=== PATIENT | female | born 1960 | race Caucasian/White ===

== ENCOUNTER 2016-09-03 03:01 | Inpatient (IN) | payer OTHER ==
[2016-09-03] MEDS ORDERED: FEVERALL 650 MG PR ONE (03:38)
[2016-09-03] MEDS ORDERED: Zosyn 3.375GM/100 Ml D5W 3.375 GM/100 ML IVPB IV STA (03:38)
[2016-09-03] MEDS ORDERED: Zosyn 3.375GM/100 Ml D5W 3.375 GM/100 ML IVPB IV ONE (03:43)
[2016-09-03] MEDS ORDERED: FEVERALL 650 MG ONE (03:43)
--- NOTE | 2016-09-03 03:53 | ERPHSYRPT ---
- History of Present Illness Time Seen by Provider: 09/03/16 03:30 Source: patient Exam Limitations: clinical condition Patient Subjective Stated Complaint: reports that she noticed skin infection on the buttocks x 1 week ago and went to see FMD, who Rx'd Keflex - states that she cant keep it down for vomiting and has had fever Triage Nursing Assessment: ambulatory to treatment area - waddling gait - moves all extremities with equal strength. alert/oriented - tearful affect. skin pwd - localized area of redness/swelling/tenderness on the right buttock. resps easy - non-labored Physician History: PATIENT COMPLAINS OF HAVING A RIGHT BUTTOCK INFECTION, INITIALLY ATTEMPTED TO RUPTURE SWOLLEN AREA BY SQUEEZING SWOLLEN AREA. HAS HAD FREQUENT EMESIS TODAY X 10, INCREASED IN PAINFUL SWELLING. PLACED ON ANTIBIOTIC KEFLEX FOR 1 WEEK. Method of Injury: unknown Quality: constant, throbbing Severity of Pain-Max: severe Severity of Pain-Current: severe Lower Extremities Pain: other: right (BUTTOCK) Associated Symptoms: none Allergies/Adverse Reactions: codeine [Codeine] Allergy (Mild, Verified 09/03/16 03:12) Home Medications: Atenolol 100 mg PO DAILY 05/24/13 [History] Furosemide [Lasix] 40 mg PO DAILY 05/24/13 [History] Modafinil [Provigil] 200 mg PO DAILY 05/24/13 [History] Hx Tetanus, Diphtheria Vaccination/Date Given: Yes Hx Influenza Vaccination/Date Given: Yes Hx Pneumococcal Vaccination/Date Given: No Immunizations Up to Date: Yes - Review of Systems Constitutional: Fever, Chills Eyes: No Symptoms Ears, Nose, & Throat: No Symptoms Respiratory: No Symptoms, No Cough, No Dyspnea Cardiac: Palpitations, No Chest Pain, No Edema, No Syncope Abdominal/Gastrointestinal: No Abdominal Pain, No Nausea, No Vomiting, No Diarrhea Genitourinary Symptoms: No Symptoms, No Dysuria Musculoskeletal: No Back Pain, No Neck Pain Skin: Cellulitis, Induration, No Rash Neurological: No Dizziness, No Focal Weakness, No Sensory Changes Psychological: No Symptoms Endocrine: No Symptoms All Other Systems: Reviewed and Negative - Past Medical History Pertinent Past Medical History: Yes Neurological History: Other Cardiac History: Hypertension Respiratory History: No Pertinent History Endocrine Medical History: Hypothyroidism Musculoskeletal History: Arthritis Other Medical History: Narcolepsy - Past Surgical History Past Surgical History: Yes Gastrointestinal: Cholecystectomy Female Surgical History: Hysterectomy Other Surgical History: SINUS SURGERY - Social History Smoking Status: Never smoker Exposure to second hand smoke: No Drug Use: none Patient Lives Alone: No - Female History Hx Last Menstrual Period: n/a Hx Now: No - Nursing Vital Signs Nursing Vital Signs: Initial Vital Signs Temperature 102.0 F Temperature Source Oral Pulse Rate 84 Respiratory Rate 16 Blood Pressure [Right Arm] 126/72 Pain Intensity 0 - Physical Exam General Appearance: alert Eyes, Ears, Nose, Throat Exam: moist mucous membranes Neck Exam: non-tender, supple Cardiovascular/Respiratory Exam: chest non-tender, normal breath sounds, regular rate/rhythm, no respiratory distress Gastrointestinal/Abdominal Exam: non-tender, guarding Back Exam: No vertebral tenderness Hips Exam: right: soft tissue tenderness (RIGHT BUTTOCK MEDIAL ASPECT 18CM X 12CM SWELLING, ERYTHEMA, MARKED TENDERNESS, WARMTH, SUPERFICIAL ABRASIONS WITH INDURATION), swelling, left: non-tender, normal inspection, normal range of motion DTR - Lower Extremities Exam: knee (R): 2+, knee (L): 2+, ankle (R): 2+, ankle ( L): 2+ Neuro/Tendon Exam: normal sensation, normal motor functions Mental Status Exam: alert, oriented x 3, cooperative Skin Exam: normal color, warm, dry SpO2 Interpretation: normal SpO2: 99 Oxygen Delivery: Room Air - Course EKG Interpreted by Me: RATE, Sinus Rhythm, NORMAL AXIS - Radiology Exams Chest X-ray Interpretation: Interpreted by me, Negative Ordered Tests: Active Orders 24 hr Category Date Time Status Admission/Status Order ROUTINE Care 09/03/16 05:50 Active Call Admit Doctor for Orders ON ADMISSION Care 09/03/16 05:51 Active Inspector Glass Or Mirror STAT Care 09/03/16 03:36 Active Clean Catch Urine Specimen STAT Care 09/03/16 03:32 Active Code Status Order ROUTINE Care 09/03/16 05:50 Active EKG-ER Only STAT Care 09/03/16 05:37 Active IV Care Q6H Care 09/03/16 05:50 Active IV Insertion STAT Care 09/03/16 04:58 Active IV Insertion-2nd Peripheral STAT Care 09/03/16 05:02 Active Oxygen-ED Only NASAL CANNULA 2 lpm Care 09/03/16 03:38 Active Pulse Oximetry (ED) STAT Care 09/03/16 03:36 Active Saline Lock STAT Care 09/03/16 03:36 Active Telemetry ROUTINE Care 09/03/16 05:50 Active Vital Signs Q4H Care 09/03/16 05:50 Active Low Sodium Diet 09/03/16 Breakfast Active CHEST 1 VIEW (PORTABLE) Stat Exams 09/03/16 03:38 Taken BLOOD CULTURE Stat Lab 09/03/16 04:00 Received CBC W DIFF Stat Lab 09/03/16 04:18 Completed CMP Stat Lab 09/03/16 04:18 Completed CULTURE,URINE Stat Lab 09/03/16 03:36 Ordered Lactic Acid Stat Lab 09/03/16 03:50 Results Lactic Acid Stat Lab 09/03/16 05:56 Ordered Manual Differential NC Stat Lab 09/03/16 04:18 Completed PROTIME WITH INR Stat Lab 09/03/16 04:39 Completed PTT Stat Lab 09/03/16 04:39 Completed TROPONIN Q3H Lab 09/03/16 04:45 Received TROPONIN Q3H Lab 09/03/16 08:45 Ordered TROPONIN Q3H Lab 09/03/16 11:45 Ordered TROPONIN Q3H Lab 09/03/16 14:45 Ordered TROPONIN Q3H Lab 09/03/16 17:45 Ordered UA Stat Lab 09/03/16 03:36 Ordered Oxygen NASAL CANNULA 2 lpm RT 09/03/16 05:50 Active Transfer Order Routine Transfer 09/03/16 05:47 Ordered Medication Summary Generic Name Dose Route Start Last Admin Trade Name Freq PRN Reason Stop Dose Admin Acetaminophen 650 mg 09/03/16 05:50 Tylenol 325 Mg PO 10/03/16 05:49 Q4H PRN PRN PAIN AND/OR FEVER Sodium Chloride 1,000 mls @ 999 mls/hr 09/03/16 03:45 09/03/16 05:35 Sodium Chloride 0.9% 1000 Ml IV 09/03/16 07:45 999 mls/hr .Q1H1M MAYURI Administration Vancomycin HCl 1 gm in 250 mls @ 167 mls/hr 09/03/16 05:41 09/03/16 05:47 Vancomycin 1gm/ Ns 250ml IV 09/03/16 07:10 167 mls/hr STAT ONE Administration Piperacillin Sod/Tazobactam Sod 3.375 gm in 100 mls @ 200 mls/hr 09/03/16 06: 00 Zosyn 3.375gm/100 Ml D5w IV 10/03/16 05:59 Q6HT MAYURI Potassium Chloride/Sodium Chloride 1,000 mls @ 50 mls/hr 09/03/16 06:00 Sodium Chloride 0.9% W/ 20 Meq Kcl/Liter IV 10/03/16 05:59 .Q20H MAYURI Sodium Chloride 1,000 mls @ 100 mls/hr 09/03/16 06:00 Sodium Chloride 0.9% 1000 Ml IV 10/03/16 05:59 .Q10H MAYURI Vancomycin HCl 1 gm in 250 mls @ 125 mls/hr 09/03/16 10:00 Vancomycin 1gm/ Ns 250ml IV 10/03/16 09:59 Q12HT MAYURI Morphine Sulfate 4 mg 09/03/16 05:50 Morphine Sulfate 4 Mg Inj IV 09/08/16 05:49 Q3H/PRN PRN PAIN Ondansetron HCl 4 mg 09/03/16 05:50 Zofran 4 Mg/2 Ml Vial IV 10/03/16 05:49 Q6H PRN PRN NAUSEA/VOMITING Discontinued Medications Generic Name Dose Route Start Last Admin Trade Name Freq PRN Reason Stop Dose Admin Acetaminophen 975 mg 09/03/16 03:38 09/03/16 04:25 Feverall 650 Mg MN 09/03/16 03:39 975 mg STAT ONE Administration Acetaminophen Confirm 09/03/16 03:43 Feverall 650 Mg Administered 09/03/16 03:44 Dose 1,300 mg .ROUTE .STK-MED ONE Piperacillin Sod/Tazobactam Sod 3.375 gm in 100 mls @ 200 mls/hr 09/03/16 03: 38 09/03/16 04:37 Zosyn 3.375gm/100 Ml D5w IV 09/03/16 04:07 200 mls/hr STAT STA Administration Piperacillin Sod/Tazobactam Sod Confirm 09/03/16 03:43 Zosyn 3.375gm/100 Ml D5w Administered 09/03/16 03:44 Dose 3.375 gm in 100 mls @ ud IV .STK-MED ONE Vancomycin HCl Confirm 09/03/16 05:46 Vancomycin 1gm/ Ns 250ml Administered 09/03/16 05:47 Dose 250 mls @ ud IV .STK-MED ONE Morphine Sulfate 10 mg 09/03/16 04:10 09/03/16 04:36 Morphine Sulfate 10 Mg/Ml IV 09/03/16 04:11 10 mg STAT ONE Administration Morphine Sulfate Confirm 09/03/16 04:34 Morphine Sulfate 10 Mg/Ml Administered 09/03/16 04:35 Dose 10 mg .ROUTE .STK-MED ONE Non-Formulary Medication 1 each 09/03/16 05:50 Pharmacy Dosing Required: Vancomycin IV 09/03/16 05:51 STAT ONE Ondansetron HCl 4 mg 09/03/16 04:10 09/03/16 04:36 Zofran 4 Mg/2 Ml Vial IV 09/03/16 04:11 4 mg STAT ONE Administration Ondansetron HCl Confirm 09/03/16 04:33 Zofran 4 Mg/2 Ml Vial Administered 09/03/16 04:34 Dose 4 mg .ROUTE .STK-MED ONE Lab/Rad Data: Laboratory Result Diagrams 09/03/16 04:18 09/03/16 04:18 Laboratory Results 09/03/16 09/03/16 09/03/16 Range/Units 04:45 04:39 04:18 WBC (4.0-10.5) K/mm3 RBC (4.1-5.4) M/mm3 Hgb (12.0-16.0) gm/dl Hct (35-47) % MCV (78-100) fl MCH (26-32) pg MCHC (32-36) g/dl RDW (11.5-14.0) % Plt Count (150-450) K/mm3 MPV (6-9.5) fl INR 1.43 (0.8-3.0) APTT 30.9 (25.3-37.0) SECONDS Sodium 136 (136-145) mEq/L Potassium 3.3 L (3.5-5.1) mEq/L Chloride 99 (98-107) mEq/L Carbon Dioxide 27.7 (21-32) mEq/L Anion Gap 12.3 (5-15) MEQ/L BUN 10 (9-20) mg/dL Creatinine 0.96 (0.55-1.30) mg/dl Estimated GFR > 60 ML/MIN Glucose 153 H (70-110) MG/DL Lactic Acid (0.4-2.0) Calcium 9.5 (8.5-10.1) mg/dL Total Bilirubin 1.00 (0.2-1.0) mg/dL AST 18 (15-37) U/L ALT 23 (12-78) U/L Alkaline Phosphatase 80 (46-116) U/L Troponin I < 0.017 (0.000-0.056) ng/ml Serum Total Protein 7.4 (6.4-8.2) gm/dL Albumin 3.2 L (3.4-5.0) g/dL 09/03/16 09/03/16 Range/Units 04:18 03:50 WBC 18.5 H (4.0-10.5) K/mm3 RBC 5.11 (4.1-5.4) M/mm3 Hgb 14.0 (12.0-16.0) gm/dl Hct 41.9 (35-47) % MCV 82.0 (78-100) fl MCH 27.4 (26-32) pg MCHC 33.4 (32-36) g/dl RDW 13.6 (11.5-14.0) % Plt Count 236 (150-450) K/mm3 MPV 9.8 H (6-9.5) fl INR (0.8-3.0) APTT (25.3-37.0) SECONDS Sodium (136-145) mEq/L Potassium (3.5-5.1) mEq/L Chloride (98-107) mEq/L Carbon Dioxide (21-32) mEq/L Anion Gap (5-15) MEQ/L BUN (9-20) mg/dL Creatinine (0.55-1.30) mg/dl Estimated GFR ML/MIN Glucose (70-110) MG/DL Lactic Acid 2.1 H (0.4-2.0) Calcium (8.5-10.1) mg/dL Total Bilirubin (0.2-1.0) mg/dL AST (15-37) U/L ALT (12-78) U/L Alkaline Phosphatase (46-116) U/L Troponin I (0.000-0.056) ng/ml Serum Total Protein (6.4-8.2) gm/dL Albumin (3.4-5.0) g/dL - Progress Progress Note: 09/03/16 04:01 PLACED ONTO SEPSIS PROTOCOL FLUID BOLUS 4000ML TO BEGIN AT 0350, BLOOD CULTURES X 2 , ZOSYN 3.375GM AND VANCOMYCIN 1GM IVPB, LACTIC ACID 2.1 Discussed with : Mukund (tanna) Will see patient in: hospital (full admit) (DISCUSSED WITH DR CAO AT 0545 FOR ADMISSION) - Departure Time of Disposition: 06:10 Departure Disposition: In-patient Admission Clinical Impression: RIGHT BUTTOCK CELLULITIS WITH SPEPSIS Condition: Stable Critical Care Time: No Referrals: BURKE CAO [Primary Care Provider] -
[2016-09-03 03:56] LABS: Lactic Acid 2.1 (0.4-2.0)
[2016-09-03] MEDS ORDERED: MORPHINE SULFATE 10 MG/ML IV ONE (04:10)
[2016-09-03] MEDS ORDERED: Zofran 4 MG/2 ML VIAL IV ONE (04:10)
[2016-09-03] MEDS: Sodium Chloride 0.9% 1000 ML 1,000 ML IV SCH ×3 (04:25→05:35)
[2016-09-03 04:26] LABS: Mean Corpuscular Hemoglobin 27.4 pg (26-32); Mean Platelet Volume 9.8 fl (6-9.5); Platelet Count 236 K/mm3 (150-450); Red Blood Count 5.11 M/mm3 (4.1-5.4); Red Cell Distribution Width 13.6 % (11.5-14.0); White Blood Count 18.5 K/mm3 (4.0-10.5)
[2016-09-03] MEDS ORDERED: Zofran 4 MG/2 ML VIAL ONE (04:33)
[2016-09-03] MEDS ORDERED: MORPHINE SULFATE 10 MG/ML ONE (04:34)
[2016-09-03 04:42] LABS: ALBUMIN 3.2 g/dL (3.4-5.0); ALKALINE PHOSPHATASE 80 U/L (46-116); ANION GAP 12.3 MEQ/L (5-15); BLOOD UREA NITROGEN 10 mg/dL (9-20); CHLORIDE 99 mEq/L (98-107); Carbon Dioxide 27.7 mEq/L (21-32); Glucose 153 MG/DL (70-110); Potassium 3.3 mEq/L (3.5-5.1); SGOT/AST 18 U/L (15-37); SGPT/ALT 23 U/L (12-78); SODIUM 136 mEq/L (136-145); Total Protein 7.4 gm/dL (6.4-8.2)
[2016-09-03 05:07] LABS: INR 1.43 (0.8-3.0); PROTIME 15.8 SECONDS (9.95-12.35)
[2016-09-03 05:10] LABS: PTT 30.9 SECONDS (25.3-37.0)
[2016-09-03] MEDS ORDERED: Vancomycin 1GM/ Ns 250ML*** 1 GM/250 ML IVPB IV ONE (05:41)
[2016-09-03] MEDS ORDERED: Vancomycin 1GM/ Ns 250ML*** 250 ML IV ONE (05:46)
[2016-09-03] MEDS ORDERED: Zofran 4 MG/2 ML VIAL IV PRN (05:50)
[2016-09-03] MEDS ORDERED: PHARMACY DOSING REQUIRED: VANCOMYCIN IV ONE (05:50)
[2016-09-03] MEDS ORDERED: MORPHINE SULFATE 4 MG INJ IV PRN (05:50)
[2016-09-03] MEDS ORDERED: Sodium Chloride 0.9% 1000 ML 1,000 ML IV SCH (06:00)
[2016-09-03] MEDS ORDERED: Sodium Chloride 0.9% W/ 20 mEq KCl/LITER 1,000 ML IV SCH (06:00)
[2016-09-03 07:37] LABS: Total Cells Counted 100
[2016-09-03 07:38] LABS: ANISOCYTOSIS 1+; Platelet Estimate NORMAL (NORMAL); Poikilocytosis 1+
[2016-09-03] MEDS: Zosyn 3.375GM/100 Ml D5W 3.375 GM/100 ML IVPB IV SCH ×3 (07:40→17:52)
--- NOTE | 2016-09-03 08:35 | PCM.HP ---
History of Present Illness - Chief Complaint Chief Complaint: RIGHT BUTTOCK CELLULITIS WITH SEPSIS History of Present Illness: is a 55 year old female pt of mine from [facility] who started having R buttock pain 1 wk ago. She had some fever and chills at home and was generally feeling poorly over the last couple of days. She called my office yesterday and we set up an appointment for today and called in po clindamycin. She was unable to tolerate that due to vomiting. In the ER she was found to have a large area of cellulitis/abscess and admitted on IV vancomycin and zosyn and surgery was consulted. - Review of Systems Constitutional: Fever, Fatigue Skin: Cellulitis, Skin Lesions All Other Systems: Reviewed and Negative Medications & Allergies Home Medications: Home Medication List Atenolol 100 mg PO DAILY 05/24/13 [History Confirmed 09/03/16] Furosemide [Lasix] 40 mg PO DAILY 05/24/13 [History Confirmed 09/03/16] Modafinil [Provigil] 200 mg PO DAILY 05/24/13 [History Confirmed 09/03/16] Cephalexin Mh 500 mg [Keflex 500 mg] 500 cap PO QID 09/03/16 [History Confirmed 09/03/16] Diclofenac Sodium 75 mg PO BID 09/03/16 [History Confirmed 09/03/16] Docusate Sodium 100 mg [Colace 100 MG] 100 mg PO DAILY PRN 09/03/16 [ History Confirmed 09/03/16] Famotidine 20 mg [Pepcid 20 MG] 20 mg PO BID 09/03/16 [History Confirmed 09/03/16] Hydrocodone Bit/Acetaminophen [Hydrocodon-Acetaminoph 7.5-325] 1 each PO QID [History Confirmed 09/03/16] Hydroxyzine HCl 25 mg [Atarax 25 mg] 25 mg PO TID 09/03/16 [History Confirmed 09/03/16] Levothyroxine Sodium 100 Mcg [Synthroid 100 Mcg] 1 tab PO QAM 09/03/16 [ History Confirmed 09/03/16] Allergies/Adverse Reactions: Allergies Allergy/AdvReac Type Severity Reaction Status Date / Time codeine [Codeine] Allergy Mild Verified 09/03/16 03:12 - Past Medical History Past Medical History: Yes Neurological History: Other Cardiac History: Hypertension Respiratory History: No Pertinent History Endocrine Medical History: Hypothyroidism Musculoskelatal History: Arthritis Comment: Narcolepsy - Female History Hx Last Menstrual Period: n/a Are you now?: No (hysterectomy) - Past Surgical History Past Surgical History: Yes GI Surgical History: Cholecystectomy Female Surgical History: Hysterectomy Other Surgical History: SINUS SURGERY - Social History Smoking Status: Never smoker Exposure to second hand smoke: No Alcohol: None Drug Use: none - Physical Exam Vital Signs: Vital Signs - 24 hr Temp Pulse Resp BP Pulse Ox 09/03/16 06:24 100.6 F 84 20 136/69 94 L 09/03/16 06:11 99 09/03/16 06:00 84 16 99 09/03/16 05:56 88 14 99 09/03/16 05:25 88 20 126/72 99 09/03/16 04:51 102.0 F 92 H 22 138/76 90 L 09/03/16 03:21 102.0 F 100 H 18 155/87 99 09/03/16 03:13 102.0 F 100 H 18 155/86 98 Oxygen-Last 24 hours O2 Percentage 2 Liters = 28% O2 Percentage 2 Liters = 28% O2 Percentage 2 Liters = 28% O2 Percentage 2 Liters = 28% General Appearance: no apparent distress, obese Neurologic Exam: alert, oriented x 3, cooperative Eye Exam: eyes nml inspection Neck Exam: normal inspection, non-tender, No lymphadenopathy Respiratory Exam: normal breath sounds, lungs clear, No crackles/rales, No rhonchi, No wheezing Cardiovascular Exam: regular rate/rhythm, normal heart sounds, No murmur Gastrointestinal/Abdomen Exam: soft, normal bowel sounds, No tenderness, No distention Extremity Exam: No pedal edema, No swelling Skin Exam: other (R buttock inferior 1/3 with edema, difficult exam d/t pain, induration, no obvious fluctuance or exudate) Assessment/Plan (1) Cellulitis and abscess of buttock Current Visit: Yes Status: Acute Assessment & Plan: On day #2 of IV vancomycin and zosyn. Surgery consult, thank you. Pt is currently NPO. Advised she will likely have to stay several days.
[2016-09-03] MEDS: TYLENOL 325 MG PO PRN ×2 (09:02→17:52)
[2016-09-03] MEDS ORDERED: PREVNAR 13 SYRINGE IM ONE (10:00)
[2016-09-03] MEDS ORDERED: Vancomycin 1GM/ Ns 250ML*** 1 GM/250 ML IVPB IV SCH (10:00)
[2016-09-03] MEDS ORDERED: DIPRIVAN 200 MG/20 ML IV ONE (11:00)
[2016-09-03] MEDS ORDERED: Quelicin Fliptop 200 MG/10 ML IV ONE (11:00)
[2016-09-03] MEDS ORDERED: Versed 2 MG/2 ML Injection IV ONE (11:00)
[2016-09-03] MEDS ORDERED: SUBLIMAZE 250 MCG/5 ML IV ONE (11:00)
[2016-09-03] MEDS ORDERED: ROBINUL IV ONE (11:00)
[2016-09-03] MEDS ORDERED: BLOXIVERZ IV ONE (11:00)
[2016-09-03] MEDS ORDERED: Zemuron 100 MG/10 ML IV ONE (11:00)
[2016-09-03] MEDS ORDERED: PHENYLEPHRINE HCL IV ONE (11:00)
[2016-09-03] MEDS: TENORMIN 50 MG PO SCH (11:08)
[2016-09-03] MEDS ORDERED: Colace 100 MG PO PRN (12:55)
[2016-09-03] MEDS: Pepcid 20 MG PO SCH ×2 (13:21→21:31)
[2016-09-03] MEDS: SYNTHROID 100 MCG PO SCH (13:21)
[2016-09-03] MEDS: ATARAX 25 MG PO SCH ×2 (14:26→21:31)
[2016-09-03] MEDS: VANCOCIN 1 GM VIAL*** 1 GM in Sodium Chloride 0.9% 250 ML 250 ML IV SCH ×2 (14:27→21:32)
[2016-09-03] MEDS ORDERED: Lactated Ringers 1,000 ML IV ONE (21:36)
[2016-09-03] MEDS ORDERED: Lactated Ringers 1,000 ML IV SCH (22:00)
--- NOTE | 2016-09-03 22:05 | XRAY ---
Exam: AP portable chest film from 0508 hrs. on 09/03/2016. Comparison: Two-view chest from 06/28/2010. Indication: Possible sepsis. Findings: The radiograph was obtained in a lordotic projection. There is mild elevation of the right hemidiaphragm. Lung volumes appear at least mildly decreased. Central prominent bilateral perihilar vascular prominence is seen. The heart size appears at the upper limits of normal with mild left ventricular prominence. No Hanny B lines, pneumothorax, or pleural fluid is seen. No definite peripheral airspace infiltrate is seen, but evaluation is limited on this AP portable lordotic chest film. The visualized bones appear intact. Impression: 1. The study is limited due to the lack of deep inspiration, the size of the patient, and the fact the image was obtained in a lordotic projection. Consider a follow-up 90 upright PA and lateral chest film when the patient is able. 2. The heart size appears at the upper limits of normal with mild left ventricular prominence. In addition, there is moderate bilateral perihilar vascular prominence which might be accentuated by the level of inspiration. Again, a follow-up 90 upright PA chest film with a better level of inspiration would be helpful. I see no definite pleural fluid. 3. No gross peripheral air space infiltrates are seen. 4. Mild elevation of right hemidiaphragm.
[2016-09-03] MEDS: MORPHINE SULFATE 2 MG INJ IV PRN (23:58)
[2016-09-04] MEDS: Zosyn 3.375GM/100 Ml D5W 3.375 GM/100 ML IVPB IV SCH ×5 (01:20→23:58)
[2016-09-04] MEDS ORDERED: TROUGH DRUG LEVELS IJ ONE (05:30)
[2016-09-04] MEDS: MORPHINE SULFATE 4 MG INJ IV PRN (05:30)
[2016-09-04] MEDS: VANCOCIN 1 GM VIAL*** 1 GM in Sodium Chloride 0.9% 250 ML 250 ML IV SCH ×3 (06:17→21:43)
[2016-09-04] MEDS ORDERED: FEVERALL 650 MG RC PRN (07:16)
--- NOTE | 2016-09-04 07:30 | OP ---
SURGERY DATE/TIME: 09/03/20162209 PREOPERATIVE DIAGNOSIS: Right buttock abscess. POSTOPERATIVE DIAGNOSIS: Right perirectal abscess. PROCEDURE: I&D right perirectal abscess. SURGEON: Fadi Brantley M.D. ANESTHESIA: General. COMPLICATIONS: None. CONDITION: Stable. INDICATION: A 55 year-old fairly robust. DESCRIPTION OF PROCEDURE: Taken to surgery. Left lateral decubitus position. There was finding in the right buttock. It was within an inch of the anus and it was perirectal. It proceeded 4 inches deep. It was totally evacuated. A 0.5 inch nonrubber drain was placed and was secured with suture #0 chromic catgut. This seemed to drain the area very well and hemostasis was adequate. The patient tolerated the procedure satisfactorily. Findings discussed with the family in the waiting room.
[2016-09-04 08:20] LABS: Bacteria RARE /HPF (NEGATIVE); COMPLETE URINE MICROSCOPIC? YES; Collection Type CLEAN CATCH; Epithelial Cells RARE /HPF (FEW); WBC 0-2 /HPF (0-5)
--- NOTE | 2016-09-04 08:52 | PCM.NOTE ---
Date and Time: 09/04/1649 Subjective Assessment: Pt had I&D about 10 pm last night, thank you, and has been cleared by surgery. Tmax 102.1 yesterday afternoon. She is feeling better, tolerating po well. C/o some sore throat (pt was intubated yesterday for procedure). Some soreness of buttock. Draining fluid from the indwelling drain. - Review of Systems Constitutional: Fever Objective Exam General Appearance: no apparent distress, obese Neurologic Exam: alert, oriented x 3, cooperative Skin Exam: warm, dry, other (R buttock with dressing in place; partially removed to reveal drain. Induration and erythema remain.) Respiratory Exam: normal breath sounds, wheezing (faint scattered exp wheeze), No crackles/rales, No rhonchi Cardiovascular Exam: regular rate/rhythm, normal heart sounds, No murmur Back Exam: normal inspection OBJECTIVE DATA Vital Signs: Vital Signs - 24 hr Temp Pulse Resp BP BP Pulse Ox 09/04/16 07:50 99.5 F 76 17 101/54 88 L 09/04/16 04:00 99.5 F 75 20 107/58 95 09/03/16 23:50 99.1 F 82 20 126/57 94 L 09/03/16 21:35 99.8 F 82 26 H 93 L 09/03/16 20:00 99.8 F 82 26 H 131/71 93 L 09/03/16 16:00 102.1 F 80 20 124/53 90 L 09/03/16 11:51 98.4 F 86 18 126/72 88 L 09/03/16 11:08 90 123/57 Oxygen-Last 24 hours O2 Percentage 3 Liters = 32% O2 Percentage 3 Liters = 32% O2 Percentage 4 Liters = 36% Pain Assessment - Last Documented Pain Intensity 10 Pain Scale Used 0-10 Pain Scale Intake and Output: Intake & Output 09/01/16 09/02/16 09/03/16 09/04/16 11:59 11:59 11:59 11:59 Intake Total 0 4229 Output Total 400 1200 Balance -400 3029 Weight 165.788 kg 165.788 kg Lab Results: Lab Results-Last 24 Hours 09/03/16 09/03/16 09/03/16 Range/Units 07:52 08:47 11:55 Troponin I < 0.017 < 0.017 (0.000-0.056) ng/ml Ur Collection Type CLEAN CATCH Urine Color YELLOW (YELLOW) Urine Appearance CLEAR (CLEAR) Urine pH 6.0 (5-6) Ur Specific [place] 1.020 (1.005-1.025) Urine Protein TRACE (Negative) Urine Glucose (UA) NEGATIVE (NEGATIVE) mg/dL Urine Ketones NEGATIVE (NEGATIVE) Urine Nitrite NEGATIVE (NEGATIVE) Urine Bilirubin NEGATIVE (NEGATIVE) Urine Urobilinogen 0.2 (0-1) mg/dL Urine WBC (Auto) NEGATIVE (NEGATIVE) Urine RBC (Auto) TRACE-INTACT (0-5) Ran/ul Urine Microscopic RBC 0-2 (0-2) /HPF Urine Microscopic WBC 0-2 (0-5) /HPF Ur Epithelial Cells RARE (FEW) /HPF Urine Bacteria RARE (NEGATIVE) /HPF Vancomycin Trough (10-20) UG/ML Specimen Received 09/04/16 0700 09/03/16 09/03/16 09/04/16 Range/Units 15:25 18:35 05:20 Troponin I < 0.017 < 0.017 (0.000-0.056) ng/ml Ur Collection Type Urine Color (YELLOW) Urine Appearance (CLEAR) Urine pH (5-6) Ur Specific [place] (1.005-1.025) Urine Protein (Negative) Urine Glucose (UA) (NEGATIVE) mg/dL Urine Ketones (NEGATIVE) Urine Nitrite (NEGATIVE) Urine Bilirubin (NEGATIVE) Urine Urobilinogen (0-1) mg/dL Urine WBC (Auto) (NEGATIVE) Urine RBC (Auto) (0-5) Ran/ul Urine Microscopic RBC (0-2) /HPF Urine Microscopic WBC (0-5) /HPF Ur Epithelial Cells (FEW) /HPF Urine Bacteria (NEGATIVE) /HPF Vancomycin Trough 10.0 (10-20) UG/ML Specimen Received Assessment/Plan (1) Cellulitis and abscess of buttock Current Visit: Yes Status: Acute Assessment & Plan: On IV vancomycin and zosyn. Would like her to be afebrile for 24 hours before she is discharged to home. She was quite ill with 18,000 WBC and elevated lactate on admission.
[2016-09-04] MEDS: ATARAX 25 MG PO SCH ×3 (09:33→21:11)
[2016-09-04] MEDS: Pepcid 20 MG PO SCH ×2 (09:33→21:11)
[2016-09-04] MEDS: SYNTHROID 100 MCG PO SCH (09:33)
[2016-09-04] MEDS: TENORMIN 50 MG PO SCH (09:35)
[2016-09-04] MEDS: MORPHINE SULFATE 2 MG INJ IV PRN ×3 (10:29→21:15)
[2016-09-04] MEDS: ENOXAPARIN SODIUM SQ SCH (11:12)
[2016-09-04] MEDS: Sodium Chloride 0.9% 10 ML FLUSH Syringe IV SCH (20:59)
[2016-09-05] MEDS: MORPHINE SULFATE 2 MG INJ IV PRN ×2 (04:38→08:29)
[2016-09-05] MEDS: VANCOCIN 1 GM VIAL*** 1 GM in Sodium Chloride 0.9% 250 ML 250 ML IV SCH ×3 (05:26→21:40)
[2016-09-05] MEDS: Zosyn 3.375GM/100 Ml D5W 3.375 GM/100 ML IVPB IV SCH (06:57)
[2016-09-05] MEDS: Sodium Chloride 0.9% 10 ML FLUSH Syringe IV SCH ×4 (07:07→20:11)
--- NOTE | 2016-09-05 08:45 | PCM.NOTE ---
Date and Time: 09/05/16 0842 Subjective Assessment: Afebrile last night. Kemi po. She feels the indurated area on R buttock is larger. Erythematous area has been marked. - Review of Systems Constitutional: No Fever Skin: Cellulitis, Other (abscess) Objective Exam General Appearance: no apparent distress, other Neurologic Exam: alert, oriented x 3, cooperative Skin Exam: warm, other (drain in place R buttocks. yellow drainage present. indurated area approx 12x 17 cm. erythematous area marked encompassing maybe 2/ 3 buttock.) OBJECTIVE DATA Vital Signs: Vital Signs - 24 hr Temp Pulse Resp BP BP Pulse Ox 09/05/16 07:34 78 18 93 L 09/05/16 04:00 98.5 F 83 24 166/84 92 L 09/04/16 23:48 99.7 F 79 24 139/69 93 L 09/04/16 22:00 81 22 92 L 09/04/16 19:59 98.4 F 74 20 133/71 93 L 09/04/16 15:21 98.4 F 74 20 109/56 93 L 09/04/16 13:29 78 16 96 09/04/16 12:00 97.4 F 69 17 111/58 96 09/04/16 09:35 77 111/55 Oxygen-Last 24 hours O2 Percentage 3 Liters = 32% O2 Percentage 3 Liters = 32% Pain Assessment - Last Documented Pain Intensity 8 Pain Scale Used 0-10 Pain Scale Intake and Output: Intake & Output 09/02/16 09/03/16 09/04/16 09/05/16 11:59 11:59 11:59 11:59 Intake Total 0 4229 2898 Output Total 400 1700 1800 Balance -400 2529 1098 Weight 165.788 kg 165.788 kg Assessment/Plan (1) Cellulitis and abscess of buttock Current Visit: Yes Status: Acute Assessment & Plan: She is on IV vancomycin and zosyn. Will change the zosyn to levaquin. Culture with no real growth. Improved in that there is no fever, but some subjective worsening.
[2016-09-05] MEDS: Levofloxacin 500MG/100ML D5W 500 MG/100 ML BAG IV SCH (09:47)
[2016-09-05] MEDS: TENORMIN 50 MG PO SCH (09:48)
[2016-09-05] MEDS: SYNTHROID 100 MCG PO SCH (09:50)
[2016-09-05] MEDS: ATARAX 25 MG PO SCH ×3 (09:50→21:40)
[2016-09-05] MEDS: Pepcid 20 MG PO SCH ×2 (09:50→21:39)
[2016-09-05] MEDS: ENOXAPARIN SODIUM SQ SCH (09:51)
[2016-09-05] MEDS: MORPHINE SULFATE 4 MG INJ IV PRN ×3 (10:40→20:07)
[2016-09-06] MEDS: MORPHINE SULFATE 4 MG INJ IV PRN ×2 (03:45→22:03)
[2016-09-06] MEDS: VANCOCIN 1 GM VIAL*** 1 GM in Sodium Chloride 0.9% 250 ML 250 ML IV SCH ×3 (05:37→21:40)
[2016-09-06] MEDS: Sodium Chloride 0.9% 10 ML FLUSH Syringe IV SCH ×3 (05:40→21:41)
[2016-09-06] MEDS: Pepcid 20 MG PO SCH ×2 (09:26→21:41)
[2016-09-06] MEDS: TENORMIN 50 MG PO SCH (09:26)
[2016-09-06] MEDS: ATARAX 25 MG PO SCH ×3 (09:26→21:41)
[2016-09-06] MEDS: SYNTHROID 100 MCG PO SCH (09:26)
[2016-09-06] MEDS: ENOXAPARIN SODIUM SQ SCH (09:27)
[2016-09-06] MEDS: Levofloxacin 500MG/100ML D5W 500 MG/100 ML BAG IV SCH (09:29)
[2016-09-06 10:38] LABS: Mean Cell Volume 82.7 fl (78-100); Mean Corpuscular Hemoglobin 26.9 pg (26-32); Mean Platelet Volume 9.5 fl (6-9.5); Platelet Count 320 K/mm3 (150-450); Red Cell Distribution Width 13.6 % (11.5-14.0); White Blood Count 9.2 K/mm3 (4.0-10.5)
[2016-09-06 10:54] LABS: ANION GAP 14.4 MEQ/L (5-15); BLOOD UREA NITROGEN 6 mg/dL (9-20); CHLORIDE 103 mEq/L (98-107); Carbon Dioxide 25.9 mEq/L (21-32); Glucose 141 MG/DL (70-110); Potassium 3.4 mEq/L (3.5-5.1); SODIUM 140 mEq/L (136-145)
[2016-09-06] MEDS: NORCO 5/325 MG PO PRN ×2 (11:51→18:45)
[2016-09-06] MEDS ORDERED: Klor Con 10 MEQ PO ONE (12:19)
--- NOTE | 2016-09-06 12:21 | PCM.NOTE ---
Date and Time: 09/06/16 1215 Subjective Assessment: She reports she has a drain in place and she feels like there is still a firm area but she does feel like there is some improvement. She denies any history of abscesses or any history of diabetes and states she has been checked for diabetes in the past. - Review of Systems Constitutional: No Symptoms Respiratory: No Symptoms Cardiac: No Symptoms Abdominal/Gastrointestinal: No Symptoms Genitourinary Symptoms: No Symptoms Skin: Other (drainage from drain in place in right buttocks) Objective Exam General Appearance: no apparent distress, obese Neurologic Exam: alert, cooperative, normal mood/affect Skin Exam: normal color, warm, dry, other (area of redness on buttocks inside marking, firm area about 10 x 10 cm with drain in place on right buttocks. No active drainage seen at this time.) Respiratory Exam: normal breath sounds, lungs clear, No crackles/rales, No rhonchi, No wheezing Cardiovascular Exam: regular rate/rhythm, normal heart sounds, No murmur, No friction rub, No gallop Gastrointestinal/Abdomen Exam: soft, normal bowel sounds, No tenderness, No distention, No mass OBJECTIVE DATA Vital Signs: Vital Signs - 24 hr Temp Pulse Resp BP BP Pulse Ox 09/06/16 11:52 98.2 F 66 18 125/58 92 L 09/06/16 09:26 74 125/58 09/06/16 07:06 98.7 F 76 20 129/60 92 L 09/06/16 03:56 98.7 F 76 20 129/60 92 L 09/06/16 00:00 98.5 F 72 20 131/60 93 L 09/05/16 21:14 94 L 09/05/16 19:38 98.2 F 74 20 134/66 92 L 09/05/16 16:00 97.9 F 75 21 144/66 95 Pain Assessment - Last Documented Pain Intensity 8 Pain Scale Used 0-10 Pain Scale Intake and Output: Intake & Output 09/04/16 09/05/16 09/06/16 09/07/16 06:59 06:59 06:59 06:59 Intake Total 3629 3498 2680 480 Output Total 1400 2500 500 Balance 2229 998 2180 480 Weight 165.788 kg 165.788 kg Lab Results: Lab Results-Last 24 Hours 06/06/2009/06/16 09/06/16 Range/Units 10:34 10:34 10:34 WBC 9.2 (4.0-10.5) K/mm3 RBC 4.80 (4.1-5.4) M/mm3 Hgb 12.9 (12.0-16.0) gm/dl Hct 39.7 (35-47) % MCV 82.7 (78-100) fl MCH 26.9 (26-32) pg MCHC 32.5 (32-36) g/dl RDW 13.6 (11.5-14.0) % Plt Count 320 (150-450) K/mm3 MPV 9.5 (6-9.5) fl Sodium 140 (136-145) mEq/L Potassium 3.4 L (3.5-5.1) mEq/L Chloride 103 (98-107) mEq/L Carbon Dioxide 25.9 (21-32) mEq/L Anion Gap 14.4 (5-15) MEQ/L BUN 6 L (9-20) mg/dL Creatinine 0.90 (0.55-1.30) mg/dl Estimated GFR > 60 ML/MIN Glucose 141 H (70-110) MG/DL Hemoglobin A1c 6.0 (4.5-6.2) Calcium 8.6 (8.5-10.1) mg/dL Assessment/Plan (1) Perirectal abscess Current Visit: Yes Status: Acute Assessment & Plan: s/p incision and drainage on 09/04/16. Continue with vancomycin for MRSA and levofloxacin for gram neg coverage as the abscess was near the rectum. Continue with wound care. Discharge planning working on disposition as she will need continued wound care. Hgb A1C normal at 6.0. WBC down to normal. Code(s): K61.1 - RECTAL ABSCESS (2) Hypokalemia Current Visit: Yes Status: Acute Assessment & Plan: Give 20 Meq KCL po once. Code(s): E87.6 - HYPOKALEMIA
[2016-09-06 13:47] LABS: Eosinophil 1 % (0.00-3.0); Platelet Estimate NORMAL (NORMAL); Total Cells Counted 100; Toxic Granulation 1+
[2016-09-07] MEDS ORDERED: TROUGH DRUG LEVELS IJ ONE (05:30)
[2016-09-07] MEDS: VANCOCIN 1 GM VIAL*** 1 GM in Sodium Chloride 0.9% 250 ML 250 ML IV SCH ×3 (06:18→22:21)
[2016-09-07] MEDS: NORCO 5/325 MG PO PRN ×2 (07:52→15:35)
[2016-09-07] MEDS: Levofloxacin 500MG/100ML D5W 500 MG/100 ML BAG IV SCH (08:29)
[2016-09-07] MEDS: SYNTHROID 100 MCG PO SCH (08:31)
[2016-09-07] MEDS: TENORMIN 50 MG PO SCH (08:31)
[2016-09-07] MEDS: ATARAX 25 MG PO SCH ×3 (08:31→22:22)
[2016-09-07] MEDS: Pepcid 20 MG PO SCH ×2 (08:31→22:21)
[2016-09-07] MEDS: ENOXAPARIN SODIUM SQ SCH (08:32)
[2016-09-07] MEDS: Sodium Chloride 0.9% 10 ML FLUSH Syringe IV SCH ×3 (08:33→22:25)
--- NOTE | 2016-09-07 09:32 | PCM.NOTE ---
Date and Time: 09/07/16926 Subjective Assessment: She reports the pain is better in her buttocks. It is still draining quit a bit and she was up four times last night changing the pad. 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 She has had normal stools. She is asking when she may return to work. Discharge planning is working on disposition for wound care. - Review of Systems Constitutional: No Symptoms Eyes: No Symptoms Ears, Nose, & Throat: No Symptoms Respiratory: No Symptoms Cardiac: No Symptoms Abdominal/Gastrointestinal: No Symptoms Genitourinary Symptoms: No Symptoms Musculoskeletal: No Symptoms Skin: Other (mild pain around buttocks) Objective Exam General Appearance: no apparent distress, obese Neurologic Exam: alert, cooperative, normal mood/affect Skin Exam: normal color, warm, dry, other (right buttocks with drain in place, mild erythema of buttocks, firm area of induration about 6 x 5 cm. No active drainage, mild tenderness over firm area.) Respiratory Exam: normal breath sounds, lungs clear, No crackles/rales, No rhonchi, No wheezing Cardiovascular Exam: regular rate/rhythm, normal heart sounds, No murmur, No friction rub, No gallop Gastrointestinal/Abdomen Exam: soft, normal bowel sounds, No tenderness, No distention, No mass, No guarding Extremity Exam: other (no c/c/e) OBJECTIVE DATA Vital Signs: Vital Signs - 24 hr Temp Pulse Resp BP BP Pulse Ox 09/07/16 08:31 78 165/72 09/07/16 07:00 98.2 F 72 18 165/72 94 L 09/07/16 04:00 98.4 F 69 20 151/70 95 09/07/16 00:00 98.3 F 70 20 132/59 96 09/06/16 20:00 98.5 F 69 20 147/70 96 09/06/16 19:33 66 18 95 09/06/16 16:00 68 18 172/81 93 L 09/06/16 11:52 98.2 F 66 18 125/58 92 L Pain Assessment - Last Documented Pain Intensity 7 Pain Scale Used 0-10 Pain Scale Intake and Output: Intake & Output 09/05/16 09/06/16 09/07/16 09/08/16 06:59 06:59 06:59 06:59 Intake Total 3498 2680 2640 480 Output Total 2500 500 1200 Balance 998 2180 1440 480 Weight 165.788 kg Lab Results: Lab Results-Last 24 Hours 09/06/16 09/06/16 09/06/16 Range/Units 10:34 10:34 10:34 WBC 9.2 (4.0-10.5) K/mm3 RBC 4.80 (4.1-5.4) M/mm3 Hgb 12.9 (12.0-16.0) gm/dl Hct 39.7 (35-47) % MCV 82.7 (78-100) fl MCH 26.9 (26-32) pg MCHC 32.5 (32-36) g/dl RDW 13.6 (11.5-14.0) % Plt Count 320 (150-450) K/mm3 MPV 9.5 (6-9.5) fl Segmented Neutrophils 69 H (36.0-66.0) % Lymphocytes (Manual) 25 (24-44) % Monocytes (Manual) 5 (0.0-12.0) % Eosinophils (Manual) 1 (0.00-3.0) % Differential Comment NORMAL Toxic Granulation 1+ Platelet Estimate NORMAL (NORMAL) Sodium 140 (136-145) mEq/L Potassium 3.4 L (3.5-5.1) mEq/L Chloride 103 (98-107) mEq/L Carbon Dioxide 25.9 (21-32) mEq/L Anion Gap 14.4 (5-15) MEQ/L BUN 6 L (9-20) mg/dL Creatinine 0.90 (0.55-1.30) mg/dl Estimated GFR > 60 ML/MIN Glucose 141 H (70-110) MG/DL Hemoglobin A1c 6.0 (4.5-6.2) Calcium 8.6 (8.5-10.1) mg/dL Vancomycin Trough (10-20) UG/ML 09/07/16 Range/Units 05:40 WBC (4.0-10.5) K/mm3 RBC (4.1-5.4) M/mm3 Hgb (12.0-16.0) gm/dl Hct (35-47) % MCV (78-100) fl MCH (26-32) pg MCHC (32-36) g/dl RDW (11.5-14.0) % Plt Count (150-450) K/mm3 MPV (6-9.5) fl Segmented Neutrophils (36.0-66.0) % Lymphocytes (Manual) (24-44) % Monocytes (Manual) (0.0-12.0) % Eosinophils (Manual) (0.00-3.0) % Differential Comment Toxic Granulation Platelet Estimate (NORMAL) Sodium (136-145) mEq/L Potassium (3.5-5.1) mEq/L Chloride (98-107) mEq/L Carbon Dioxide (21-32) mEq/L Anion Gap (5-15) MEQ/L BUN (9-20) mg/dL Creatinine (0.55-1.30) mg/dl Estimated GFR ML/MIN Glucose (70-110) MG/DL Hemoglobin A1c (4.5-6.2) Calcium (8.5-10.1) mg/dL Vancomycin Trough 11.2 (10-20) UG/ML Assessment/Plan (1) Perirectal abscess Current Visit: Yes Status: Acute Assessment & Plan: Wound culture growing MRSA. Continue vancomycin and also levofloxacin to cover for any gram neg organisms. Surgeons are following too. Code(s): K61.1 - RECTAL ABSCESS (2) Essential hypertension Current Visit: Yes Status: Acute Assessment & Plan: Continue atenolol and start lisinopril 10 mg po QAM. Change to low sodium diet. Code(s): I10 - ESSENTIAL (PRIMARY) HYPERTENSION
[2016-09-07] MEDS: Zestril 10 MG PO SCH (10:23)
[2016-09-07] MEDS: MORPHINE SULFATE 2 MG INJ IV PRN (22:23)
[2016-09-08] MEDS: VANCOCIN 1 GM VIAL*** 1 GM in Sodium Chloride 0.9% 250 ML 250 ML IV SCH (06:15)
[2016-09-08 06:54] VITALS: O2SAT 93
--- NOTE | 2016-09-08 09:06 | PCM.DS ---
Discharge Summary Date of Admission: 09/03/16 06:18 Admitting Physician: BURKE CAO Consults: Consults on Case 09/03/16 07:20 Consult Surgery ROUTINE Primary Care Provider: BURKE CAO Allergies Allergies codeine [Codeine] Allergy (Mild, Verified 09/03/16 03:12) Hospital Summary - Hospital Course Hospital Course: Pt admitted with abscess on R buttock, drained by surgery (thank you) and on IV vancomycin and levaquin. She has improved all weekend. Found to have MRSA. She is feeling better, feels like indurated area on her bottom has improved/ decreased in size. Still has drain tube. Would like to go back to work. - Vitals & Intake/Output Vital Signs: Vital Signs Temperature 98.4 F 09/08/16 06:52 Pulse Rate 78 09/08/16 06:52 Respiratory Rate 18 09/08/16 06:52 Blood Pressure 158/70 09/08/16 06:52 O2 Sat by Pulse Oximetry 93 L 09/08/16 06:52 Oxygen-Last Documented O2 Percentage 3 Liters = 32% Intake & Output: Intake & Output 09/05/16 09/06/16 09/07/16 09/08/16 11:59 11:59 11:59 11:59 Intake Total 3338 2720 2640 2530 Output Total 5733 250 1141 Balance 1538 2220 1440 2530 Weight 165.788 kg - Lab Result Diagrams: 09/06/16 10:34 09/06/16 10:34 Micro Results-Entire Visit: Microbiology 09/03/16 07:52 Urine Culture - Final Clean Catch Midstream NO GROWTH 09/03/16 22:36 Gram Stain - Final Buttock - Right Abscess Culture - Final Methicillin Resist Staph Aur - Procedures and Test Procedures and Tests throughout Hospitalization: Therapy Orders & Screens 09/04/16 09:35 Incentive Spirometry Assessmen UD Comment: Diagnosis: RIGHT BUTTOCK CELLULITIS WITH SEPSIS 09/05/16 10:02 Incentive Spirometry Assessmen UD Comment: Diagnosis: RIGHT BUTTOCK CELLULITIS WITH SEPSIS Discharge Exam General Appearance: no apparent distress, obese Neurologic Exam: alert, oriented x 3, cooperative Skin Exam: warm, dry, other (R buttock decreased erythema, decreased induration (approx 7x10 cm). Drain tube present with some serosanguinous drainage.) Respiratory Exam: normal breath sounds, lungs clear, No crackles/rales, No rhonchi, No wheezing Cardiovascular Exam: regular rate/rhythm, normal heart sounds, No murmur Final Diagnosis/Problem List - Final Discharge Diagnosis/Problem (1) Cellulitis and abscess of buttock Current Visit: Yes Status: Acute Assessment & Plan: Overall she is much improved. Will plan on d/c home with po bactrim and levaquin. Discussed at length signs of increasing/worsening infection, including increased induration, fever, or generally not feeling well. Would advise return to work in 3d (take 2d off after returning home). (2) Essential hypertension Current Visit: Yes Status: Acute Assessment & Plan: Hold the lisinopril while on bactrim as it may cause hyperkalemia. check BMP in 3d. - Discharge Disposition: Home, Self-Care Condition: Stable Prescriptions: New Sulfamethoxazole/Trimethoprim [Bactrim Ds Tablet] 1 each PO BID #28 tablet Levofloxacin [Levaquin] 500 mg PO DAILY #5 tablet Continue Furosemide [Lasix] 40 mg PO DAILY Atenolol 100 mg PO DAILY Levothyroxine Sodium 100 Mcg [Synthroid 100 Mcg] 1 tab PO QAM Famotidine 20 mg [Pepcid 20 MG] 20 mg PO BID Diclofenac Sodium 75 mg PO BID Docusate Sodium 100 mg [Colace 100 MG] 100 mg PO DAILY PRN PRN Reason: Constipation Changed Hydrocodone Bit/Acetaminophen [Hydrocodon-Acetaminoph 7.5-325] 1 each PO QID PRN #120 tablet PRN Reason: Pain Discontinued Cephalexin Mh 500 mg [Keflex 500 mg] 500 cap PO QID No Action Modafinil [Provigil] 200 mg PO DAILY Hydroxyzine HCl 25 mg [Atarax 25 mg] 25 mg PO TID Instructions: Cellulitis -- Adult, Methicillin-Resistant Staph Infection (MRSA) , Incision and Drainage of a Skin Abscess, Sepsis -- Adult Follow up with: SERA COLMENARES [COURTESY STAFF] - 1 Week BURKE CAO [Primary Care Provider] - Forms: Discharge Instructions
[2016-09-08] MEDS: Levofloxacin 500MG/100ML D5W 500 MG/100 ML BAG IV SCH (09:22)
[2016-09-08] MEDS: ENOXAPARIN SODIUM SQ SCH (09:22)
[2016-09-08] MEDS: ATARAX 25 MG PO SCH (09:22)
[2016-09-08] MEDS: Pepcid 20 MG PO SCH (09:23)
[2016-09-08] MEDS: TENORMIN 50 MG PO SCH (09:23)
[2016-09-08] MEDS: SYNTHROID 100 MCG PO SCH (09:23)
[2016-09-08 09:27] VITALS: BP 153/91; PULSE 73
[2016-09-08] MEDS: Zestril 10 MG PO SCH (09:32)
[2016-09-08] MEDS: NORCO 5/325 MG PO PRN (09:32)
== END 2016-09-08 12:00 | disposition home or self-care (01) | DRG 395 ==
LOC: ED 03:01 → OBSVTOIN 06:18 → MED SURG 06:18
PROVIDERS: ADMIT Family Medicine; ATTEND Family Medicine
PROC: 0J9900Z Drainage of Buttock Subcutaneous Tissue and Fascia with Drainage Device, Open Approach (ICD-10-PCS; principal; 2016-09-03)
DX: K61.1 Rectal abscess (principal); B95.62 Methicillin resistant Staphylococcus aureus infection as the cause of diseases classified elsewhere; I10 Essential (primary) hypertension; E87.6 Hypokalemia; E03.9 Hypothyroidism, unspecified; M19.90 Unspecified osteoarthritis, unspecified site; G47.419 Narcolepsy without cataplexy
CPT/HCPCS: 00902; 36000; 36415; 71010; 80048; 80053; 80202; 81000; 83036; 83605; 84484; 85025; 85610; 85730; 87040; 87070; 87077; 87086; 87186; 90670; 93005; 93041; 94760; 96360; 96361; 96365; 96374; 96375; 99285; J0330; J1650; J1956; J2250; J2270; J2370; J2405; J2543; J2704; J2710; J3010; J3370; A9270-GY

== ENCOUNTER 2017-04-22 05:43 | Day surgery (SDC) | payer OTHER ==
[2017-04-22] MEDS ORDERED: Ketamine HCl 50 MG/ML IV ONE (05:44)
[2017-04-22] MEDS ORDERED: DIPRIVAN 200 MG/20 ML IV ONE (05:44)
[2017-04-22] MEDS ORDERED: Versed 2 MG/2 ML Injection ONE (06:55)
[2017-04-22] MEDS ORDERED: Lactated Ringers 1,000 ML IV SCH (07:00)
[2017-04-22] MEDS ORDERED: Versed 2 MG/2 ML Injection IV ONE (07:15)
[2017-04-22 08:50] VITALS: O2SAT 96
[2017-04-22 09:26] VITALS: BP 147/67; PULSE 90
--- NOTE | 2017-04-22 09:49 | OP ---
SURGERY DATE/TIME: 04/22/2017 0753 PREOPERATIVE DIAGNOSES: 1) History of gastric polyps. 2) Gastroesophageal reflux disease. POSTOPERATIVE DIAGNOSIS: 1) Moderate gastritis. 2) Distal esophagitis. PROCEDURE: EGD. SURGEON: Blane Werner M.D. ANESTHESIA: MAC by Chilango Craig CRNA. ESTIMATED BLOOD LOSS: None. SPECIMENS: There are two cold forceps biopsies from the gastric antrum and two cold forceps biopsies from the distal esophagus. DESCRIPTION OF PROCEDURE: After informed written consent was obtained, the patient was taken to the endoscopy suite. She underwent monitored anesthesia and a bite block was inserted. The endoscope was inserted into the posterior oropharynx and under direct visualization the esophagus was traversed. The esophageal mucosa had no obvious abnormalities until I had reached the distal esophagus. There were some esophagitis inflammatory-type changes in the distal esophagus near the gastroesophageal junction. Upon entering the stomach there was normal rugated gastric mucosa. There were moderate gastritis-type changes with small papillary area near the pylorus. The pylorus was traversed and the first and second portions of the duodenum had no obvious lesions. Area of papillary appearance with gastritis changes in the gastric antrum was sampled with cold forceps biopsy and another signs sales representative area of gastritis sent for Helicobacter pylori testing. Upon withdrawal again the distal esophagitis changes were noted. Two signs sales representative cold forceps biopsy samples were taken from this area and sent for testing as well. The scope was removed and the patient was transferred to the recovery room in excellent condition. I have advised that she stop her diclofenac, continue her Pepcid and follow up in a week for pathology results.
== END 2017-04-22 09:29 | disposition home or self-care (01) ==
LOC: SDC 05:43 → EDSTATUS 13:01
PROVIDERS: ATTEND Family Medicine
PROC: 0DB38ZX Excision of Lower Esophagus, Via Natural or Artificial Opening Endoscopic, Diagnostic (ICD-10-PCS; principal; 2017-04-22)
PROC: 0DB78ZX Excision of Stomach, Pylorus, Via Natural or Artificial Opening Endoscopic, Diagnostic (ICD-10-PCS; 2017-04-22)
PROC: 0DB68ZX Excision of Stomach, Via Natural or Artificial Opening Endoscopic, Diagnostic (ICD-10-PCS; 2017-04-22)
DX: K29.70 Gastritis, unspecified, without bleeding (principal); K20.9 Esophagitis, unspecified; K21.9 Gastro-esophageal reflux disease without esophagitis
CPT/HCPCS: 00731; J2250; J2704

== ENCOUNTER 2018-07-21 10:18 | Day surgery (SDC) | payer OTHER ==
[2018-07-21] MEDS ORDERED: LIDOCAINE HCL 2% 100 MG/5 ML IJ ONE (10:19)
[2018-07-21] MEDS ORDERED: Depo-Medrol 40 MG/ML IM ONE (10:19)
[2018-07-21] MEDS ORDERED: Xylocaine 1% Vial 30 ML PF IJ ONE (10:19)
[2018-07-21] MEDS ORDERED: Sodium Chloride 0.9(Preservative Free) 10 ML IJ ONE (10:19)
[2018-07-21] MEDS ORDERED: DIPRIVAN 200 MG/20 ML IV ONE (10:19)
[2018-07-21] MEDS ORDERED: Ketamine HCl 50 MG/ML IJ ONE (10:19)
--- NOTE | 2018-07-21 13:34 | XRAY ---
Indication: L3-L4 KARYN. Intraoperative fluoroscopy was provided for 16 seconds. 2 digital spot images submitted for interpretation demonstrates midline posterior needle tip just posterior to the L4-L5 interspace. Correlate with intraoperative findings/report.
--- NOTE | 2018-07-21 13:38 | XRAY ---
16 seconds fluoroscopy time in surgery for L3-L4 KARYN.
[2018-07-21] MEDS ORDERED: Lactated Ringers 1,000 ML IV ONE (17:11)
== END 2018-07-21 12:41 | disposition home or self-care (01) ==
LOC: SDC-PAIN 10:18
PROVIDERS: ATTEND Psychiatry & Neurology Pain Medicine
DX: M54.16 Radiculopathy, lumbar region (principal); Z79.899 Other long term (current) drug therapy; I10 Essential (primary) hypertension; G47.30 Sleep apnea, unspecified; G47.419 Narcolepsy without cataplexy; K21.9 Gastro-esophageal reflux disease without esophagitis
CPT/HCPCS: 62323; 72100; 77003; J1030; J2001; J2704; Q9966